=== PATIENT | female | born 1990 | race Caucasian/White ===

== ENCOUNTER 2020-12-24 20:08 | Emergency (ER) | payer SELFPAY ==
[2020-12-24] MEDS ORDERED: TETANUS & DIPHTHERIA TOX,ADULT 0.5 ML VIAL ONE (20:59)
[2020-12-24] MEDS ORDERED: IBUPROFEN 200 MG TAB PO ONE (20:59)
--- NOTE | 2020-12-24 21:20 | EDPHYS ---
Physician Documentation [facility] Name: Flori Areans Age: 30 yrs Sex: Female : 1990 Arrival Date: 12/24/2020 Time: 20:11 Bed 18 Private MD: ED Physician Avi Magdaleno HPI: 12/24 21:26 This 30 yrs old Female presents to ER via Ambulatory with complaints of Hand kb Injury. 21:26 The patient has not experienced similar symptoms in the past. The patient has not kb recently seen a physician. 21:27 The patient has a laceration related to: falling occurred at home, and has glass or an kb other foreign body present. The injury was accidental. The laceration(s) is(are) located on the left elbow and palmar aspect of left forearm. Onset: The symptoms/episode began/occurred just prior to arrival. Associated signs and symptoms: The patient has no apparent associated signs or symptoms. Pt reports she had broken something in the garage earlier in the week so there was glass on the floor. She was taking out the trash tonight and slipped causing her to fall. Pt cut left forearm and elbow on glass. 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 - Social history:: Smoking status: Patient denies any tobacco usage or history of. ROS: 21:25 Constitutional: Negative for fever, chills, and weight loss. kb 21:25 Skin: Positive for abrasion(s), laceration(s), of the left elbow and palmar aspect of left forearm. 21:25 All other systems are negative. kb Exam: 21:26 Constitutional: This is a well developed, well nourished patient who is awake, alert, kb and in no acute distress. Head/Face: Normocephalic, atraumatic. ENT: Moist Mucous membranes Respiratory: Respirations even and unlabored. No increased work of breathing, no retractions or nasal flaring. MS/ Extremity: Pulses equal, no cyanosis. Neurovascular intact. Full, normal range of motion. Neuro: Awake and alert, GCS 15, oriented to person, place, time, and situation. Moves all extremities. Normal gait. Psych: Awake, alert, with orientation to person, place and time. Behavior, mood, and affect are within normal limits. 21:26 Skin: injury, abrasion(s), very small abrasion noted, of the palmar aspect of left forearm, laceration(s), the wound is approximately 1.5 cm(s), of the left elbow, that can be described as clean, no foreign body, irregular, without bleeding. Vital Signs: 20:23 BP 133 / 75; Pulse 88; Resp 16; Temp 99.6(O); Pulse Ox 98% on R/A; Weight 74.84 kg (R); lp1 Height 5 ft. 0 in. (152.40 cm); Pain 0/10; 21:24 BP 124 / 70; Pulse 90; Resp 20; Temp 98.8; Pulse Ox 99% on R/A; Pain 3/10; kc4 20:23 Body Mass Index 32.22 (74.84 kg, 152.40 cm) lp1 Laceration: 21:23 Wound Repair of 1.5cm ( 0.6in ) subcutaneous laceration to left elbow. Irregularly kb shaped.. Distal neuro/vascular/tendon intact. Anesthesia: Wound infiltrated with 2 mls of 1% lidocaine. Wound prep: Extensive cleansing with betadine by me, Wound irrigation with saline by me. Skin closed with 2 4-0 Prolene using simple sutures and sterile technique. Patient tolerated well. MDM: 20:24 Patient medically screened. kb 21:06 Data reviewed: vital signs, nurses notes. Data interpreted: Pulse oximetry: on room air kb is 98 %. Interpretation: normal. Counseling: I had a detailed discussion with the patient and/or guardian regarding: the historical points, exam findings, and any diagnostic results supporting the discharge/admit diagnosis, the need for outpatient follow up, a family practitioner, to return to the emergency department if symptoms worsen or persist or if there are any questions or concerns that arise at home. 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 Exp: kc4 07/07/2022. Lot #: [id number]. } Route: IM; Site: right deltoid; 20:39 Drug: Ibuprofen 600 mg Route: PO; kc4 21:09 Drug: Lidocaine (1 %) 1 vials {Note: elbow .} Volume: 5 ml; Route: Infiltration; kc4 Disposition: 12/25 04:09 Co-signature as Attending Physician, Avi Magdaleno MD. [email or web address] Disposition Summary: 12/24/20 21:19 Discharge Ordered Location: Home kb Condition: Stable kb Diagnosis - Fall on same level from slipping, tripping and stumbling without subsequent kb striking against object - Laceration without foreign body of left elbow kb - Abrasion of left forearm kb Followup: kb - With: Emergency Department - When: As needed - Reason: Worsening of condition Followup: kb - With: Private Physician - When: 2 - 3 days - Reason: Recheck today's complaints, Continuance of care, Re-evaluation by your physician Discharge Instructions: - Discharge Summary Sheet kb - Laceration Care, Adult, [id number] kb - Abrasion, [id number] kb Forms: - Medication Reconciliation Form kb - Thank You Letter kb - Antibiotic Education kb - Prescription Opioid Use kb Signatures: Dispatcher [employer] Jsoi Blunt, PERSONAL BANKING ASSISTANT-C PERSONAL BANKING ASSISTANT-Morena Jeronimo, RN RN lp1 Avi Magdaleno MD MD [facility] Sade Bates [facility]
--- NOTE | 2020-12-24 21:20 | ER ---
Nurse's Notes [facility] Name: Flori Arenas Age: 30 yrs Sex: Female : 1990 Arrival Date: 12/24/2020 Time: 20:11 Bed 18 Private MD: Diagnosis: Fall on same level from slipping, tripping and stumbling without subsequent striking against object;Laceration without foreign body of left elbow;Abrasion of left forearm Presentation: 12/24 20:23 Chief complaint: Patient states: Fell onto broken glass while taking trash out [facility] about 1930; small laceration to left elbow and left wrist, not actively bleeding. Coronavirus screen: At this time, the client does not indicate any symptoms associated with coronavirus-19. Ebola Screen: No symptoms or risks identified at this time. Initial Sepsis Screen: Does the patient meet any 2 criteria? No. Patient's initial sepsis screen is negative. Does the patient have a suspected source of infection? No. Patient's initial sepsis screen is negative. Risk Assessment: Do you want to hurt yourself or someone else? Patient reports no desire to harm self or others. Onset of symptoms was December 24, 2020 at 19:30. 20:23 Method Of Arrival: Ambulatory lp1 20:23 Acuity: BONILLA 4 lp1 Triage Assessment: 21:30 Injury Description: Abrasion sustained to left arm Laceration sustained to left elbow kc4 is. 21:31 Musculoskeletal: No deficits noted. No signs and/or symptoms reported regarding the [facility] musculoskeletal system. 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 - Social history:: Smoking status: Patient denies any tobacco usage or history of. Screenin:24 Abuse screen: Denies threats or abuse. Nutritional screening: No deficits noted. kc4 Tuberculosis screening: No symptoms or risk factors identified. Never had TB. Possible symptoms: None Risk factors: None. Fall Risk None identified. Fall in past 12 months (25 points). No secondary diagnosis (0 pts). No IV (0 pts). Ambulatory Aid- None/Bed Rest/Nurse Assist (0 pts). Gait- Normal/Bed Rest/Wheelchair (0 pts) Mental Status- Oriented to own ability (0 pts). Total Mcneil Fall Scale indicates No Risk (0-24 pts). Assessment: 21:24 General: Appears distressed, unkempt, Behavior is cooperative, anxious. Pain: Complains kc4 of pain in left arm Pain currently is 8 out of 10 on a pain scale. level that patient reports is acceptable is 2 out of 10 on a pain scale. Pain began 1 hour ago. Is continuous, Alleviated by nothing. Aggravated by. Neuro: No deficits noted. Cardiovascular: No deficits noted. Respiratory: No deficits noted. GI: No deficits noted. : No deficits noted. EENT: No deficits noted. No signs and/or symptoms were reported regarding the EENT system. Derm:. Vital Signs: 20:23 BP 133 / 75; Pulse 88; Resp 16; Temp 99.6(O); Pulse Ox 98% on R/A; Weight 74.84 kg (R); lp1 Height 5 ft. 0 in. (152.40 cm); Pain 0/10; 21:24 BP 124 / 70; Pulse 90; Resp 20; Temp 98.8; Pulse Ox 99% on R/A; Pain 3/10; kc4 20:23 Body Mass Index 32.22 (74.84 kg, 152.40 cm) lp1 ED Course: 20:11 Patient arrived in ED. ja2 20:22 Avi Magdaleno MD is Attending Physician. 7 20:23 [facility] kb 20:25 Triage completed. lp1 20:25 Sade Bates is Primary Nurse. kc4 20:25 Arm band placed on. lp1 21:10 Forearm Left XRAY In Process Unspecified. EDMS 21:24 Patient has correct armband on for positive identification. Bed in low position. Call kc4 light in reach. Side rails up X 1. 21:24 Assist provider with laceration repair on back of left arm and palmar aspect of left kc4 forearm and left elbow that was 2.5 cm. or less using sutures. Set up tray. Performed by Josi MYERS Dressed with band aid, Patient tolerated well. Patient did not have IV access during this emergency room visit. 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 Exp: kc4 07/07/2022. Lot #: [id number]. } Route: IM; Site: right deltoid; 20:39 Drug: Ibuprofen 600 mg Route: PO; kc4 21:09 Drug: Lidocaine (1 %) 1 vials {Note: elbow .} Volume: 5 ml; Route: Infiltration; kc4 Outcome: 21:19 Discharge ordered by . kb 21:29 Discharged to home ambulatory. kc4 21:29 Condition: stable 21:29 Discharge instructions given to patient, Instructed on discharge instructions, follow up and referral plans. suture care and abrasion care at home Demonstrated understanding of instructions, follow-up care, wound care. 21:31 Patient left the ED. kc4 Signatures: Dispatcher [employer] EDMS Josi Collins FNP-C FNP-Morena Jeronimo RN RN 1 Avi Magdaleno MD MD 7 Sade Bates 4 Kelly Phillips
--- NOTE | 2020-12-24 21:22 | RAD REPORT ---
EXAM DESCRIPTION: RAD - Forearm Left - 12/24/2020 9:10 pm CLINICAL HISTORY: PAINfall, arm trauma COMPARISON: None. FINDINGS: No fracture is identified. There is no dislocation or periosteal reaction noted. No foreign body or other soft tissue abnormality. IMPRESSION: Negative left forearm examination.
[2020-12-24] MEDS ORDERED: LIDOCAINE 1% MPF 30 ML VIAL ONE (21:28)
[2020-12-24 22:42] VITALS: BP 124/70; TEMP 98.8; O2SAT 99
== END 2020-12-24 21:31 | disposition home or self-care (01) ==
LOC: ER 20:08
PROC: 0JQH0ZZ Repair Left Lower Arm Subcutaneous Tissue and Fascia, Open Approach (ICD-10-PCS; principal; 2020-12-24)
DX: S51.012A Laceration without foreign body of left elbow, initial encounter (principal); S50.812A Abrasion of left forearm, initial encounter; W01.110A Fall on same level from slipping, tripping and stumbling with subsequent striking against sharp glass, initial encounter; Y93.89 Activity, other specified; Y92.89 Other specified places as the place of occurrence of the external cause; Z23 Encounter for immunization
CPT/HCPCS: 90471; 90714; 99283